=== PATIENT | female | born 1990 | race African-American/Black ===

== ENCOUNTER 2017-06-25 23:04 | Emergency (ER) | payer OTHER ==
[~2017-06-25] VITALS: Ht 170.2 cm; Wt 59.9 kg
[2017-06-25 23:40] LABS: ABSOLUTE NEUTROPHILS 4.6 thou/uL (1.4-8.2); BASOPHILS 0.6 % (0.0-2.0); EOSINOPHILS 2.2 % (0.0-3.0); HEMATOCRIT 27.7 % (37.0-47.0); HEMOGLOBIN 9.6 gm/dL (12.0-15.0); LYMPHOCYTES 28.6 % (24.0-44.0); MCH 31.1 pg (26.0-34.0); MCHC 34.6 g/dL (28.0-37.0); MCV 89.9 fL (80.0-100.0); MONOCYTES 5.1 % (1.0-8.0); PLATELET COUNT 203 thou/uL (150-400); POLYS 63.5 % (36.0-66.0); RBC 3.08 mil/uL (4.20-5.00); RDW 12.8 % (10.5-14.5); WBC 7.3 thou/uL (4.0-11.0)
[2017-06-25 23:43] LABS: MANUAL DIFF NO
[2017-06-25 23:46] LABS: CALCIUM 8.6 mg/dL (8.5-10.1); POTASSIUM 3.6 mmol/L (3.5-5.1)
[2017-06-26 01:11] VITALS: BP 114/28
== END 2017-06-26 01:12 | disposition home or self-care (01) ==
LOC: ER 23:04
PROVIDERS: Emergency Medicine
DX: O03.9 Complete or unspecified spontaneous abortion without complication (principal); D64.9 Anemia, unspecified; Z3A.09 9 weeks gestation of pregnancy